=== PATIENT | female | born 1965 | race Caucasian/White ===

== ENCOUNTER 2020-08-25 09:35 | Emergency (ER) | payer BC ==
[2020-08-25] MEDS ORDERED: Ketorolac 60 MG/2 ML SDV IM ONE (10:04)
--- NOTE | 2020-08-25 10:09 | EDM.PDOC ---
ED HPI GENERAL MEDICAL PROBLEM - General Chief Complaint: Flank Pain Stated Complaint: STOMACH PAIN Time Seen by Provider: 08/25/20 09:50 Source of Information: Reports: Patient History Limitations: Reports: No Limitations - History of Present Illness INITIAL COMMENTS - FREE TEXT/NARRATIVE: patient presented to the ER with a c/o left flank pain for 1 day. No fever but chills on/off. Reports that her pain is suprapubic and radiating to the left flank. Also reports emesis this morning. h/o kidney stones in the past. no change in urine today. Onset: Sudden Duration: Day(s): (1) Location: Reports: Abdomen Quality: Reports: Sharp Severity: Moderate - Related Data Allergies Allergy/AdvReac Type Severity Reaction Status Date / Time No Known Allergies Allergy Verified 07/10/15 10:15 Home Meds: Home Meds Biotin 7,000 mcg PO DAILY 07/09/15 [History] Calcium Carbonate/Vitamin D3 [Calcium 1,000 + D3 Caplet] 1 tab PO DAILY 07/09/15 [History] Multivitamin [Multivitamins] 1 each PO DAILY 07/09/15 [History] Past Medical History HEENT History: Reports: Impaired Vision Gastrointestinal History: Reports: Diverticulosis, Other (See Below) Other Gastrointestinal History: Diverticulitis Genitourinary History: Reports: Renal Calculus, UTI, Recurrent [employer]CH[employer]ICIAN History: Reports: Musculoskeletal History: Reports: Osteoarthritis Oncologic (Cancer) History: Reports: Other (See Below) Other Oncologic History: skin cancer Dermatologic History: Reports: Other (See Below) Other Dermatologic History: skin cancer - Infectious Disease History Infectious Disease History: Reports: Chicken Pox, Measles - Past Surgical History Female Surgical History: Reports: D&C Social & Family History - Family History Family Medical History: Unobtainable GI: Reports: Other (See Below) Other GI Family History: colon cancer - uncle ED ROS GENERAL - Review of Systems Review Of Systems: See Below Constitutional: Reports: No Symptoms HEENT: Reports: No Symptoms Respiratory: Reports: No Symptoms Cardiovascular: Reports: No Symptoms GI/Abdominal: Reports: Abdominal Pain : Reports: Flank Pain Musculoskeletal: Reports: No Symptoms Skin: Reports: No Symptoms Neurological: Reports: No Symptoms ED EXAM, RENAL/ - Physical Exam Exam: See Below Exam Limited By: No Limitations General Appearance: Alert, WD/WN, No Apparent Distress Eye Exam: Bilateral Eye: EOMI, PERRL Respiratory/Chest: No Respiratory Distress Cardiovascular: Normal Peripheral Pulses GI/Abdominal: Normal Bowel Sounds Back Exam: CVA Tenderness (L) Extremities: Normal Inspection Neurological: Alert, Oriented, No Motor/Sensory Deficits Course - Orders/Labs/Meds Orders: Active Orders 24 hr Category Date Time Status Abdomen Pelvis wo Cont [CT] Stat Exams 08/25/20 10:27 Ordered Labs: Laboratory Tests 08/25/20 08/25/20 08/25/20 Range/Units 10:04 10:10 10:10 WBC 9.5 (4.0-11.0) K/uL RBC 4.38 (3.80-5.80) M/uL Hgb 12.5 (11.5-16.5) g/dL Hct 36.3 L (37.0-47.0) % MCV 83 (76-96) fL MCH 28.5 (27.0-32.0) pg MCHC 34.4 (31.0-35.0) g/dL RDW 13.5 (11.0-16.0) % Plt Count 250 (150-500) K/uL MPV 9.2 (6.0-10.0) fL Sodium 143 (136-145) mmol/L Potassium 4.5 (3.5-5.1) mmol/L Chloride 104 (98-107) mmol/L Carbon Dioxide 30.1 (21.0-32.0) mmol/L Anion Gap 13.4 (5.0-15.0) mmol/L BUN 14 D (8-26) mg/dL Creatinine 0.98 D (0.55-1.02) mg/dL Est Cr Clr Drug Dosing TNP Estimated GFR (MDRD) 59 L (>60) MLS/MIN BUN/Creatinine Ratio 14.3 (6-25) Glucose 100 (74-100) mg/dL Calcium 9.2 (8.5-10.1) mg/dL Urine Color Yellow Urine Appearance Cloudy (CLEAR) Urine pH 7.5 (5.0-8.0) Ur Specific [place] 1.020 (1.003-1.030) Urine Protein Negative (NEGATIVE) mg/dL Urine Glucose (UA) Negative (NEGATIVE) mg/dL Urine Ketones Negative (NEGATIVE) mg/dL Urine Occult Blood Trace-intact H (NEGATIVE) Urine Nitrite Negative (NEGATIVE) Urine Bilirubin Negative (NEGATIVE) Urine Urobilinogen 0.2 (0.2-1.0) E.U./dL Ur Leukocyte Esterase Negative (NEGATIVE) Urine RBC 5-10 H /HPF Urine WBC Not seen /HPF Amorphous Sediment Moderate /HPF Meds: Medications Discontinued Medications Generic Name Dose Route Start Last Admin Trade Name Jamaalq PRN Reason Stop Dose Admin Ketorolac Tromethamine 60 mg 08/25/20 10:04 Ketorolac 60 Mg/2 Ml Sdv IM 08/25/20 10:05 ONETIME ONE Ketorolac Tromethamine Confirm 08/25/20 10:13 Ketorolac 60 Mg/2 Ml Sdv Administered 08/25/20 10:14 Dose 60 mg .ROUTE .STK-MED ONE - Re-Assessments/Exams Free Text/Narrative Re-Assessment/Exam: vitals WNL labs were ordered - no leukocytosis, but UA ++ RBC CT abd/pelv showed - 1- left ureteric calculi [id number] with mild hydronephrosis 2- diverticulosis 3- possible pyelonephritis - given fatty stranding around the left kidney pain was controlled with IM toradol - she feels much better and is sleeping Departure - Departure Time of Disposition: 11:20 Disposition: Home, Self-Care 01 Condition: Good Clinical Impression: UTI, Urinary tract infectious disease, Ureteric colic - Discharge Information *PRESCRIPTION DRUG MONITORING PROGRAM REVIEWED*: Not Applicable *COPY OF PRESCRIPTION DRUG MONITORING REPORT IN PATIENT ELEAZAR: Not Applicable Instructions: Urinary Tract Infection, Adult, Renal Colic, [id number] Referrals: PCP,None [Primary Care Provider] - Forms: ED Department Discharge - Problem List & Annotations (1) UTI, Urinary tract infectious disease SNOMED Code(s): 52793974 Code(s): N39.0 - URINARY TRACT INFECTION, SITE NOT SPECIFIED Status: Acute Priority: Low Current Visit: Yes (2) Ureteric colic SNOMED Code(s): 98052751 Code(s): N23 - UNSPECIFIED RENAL COLIC Status: Acute Priority: Low Current Visit: Yes - Problem List Review Problem List Initiated/Reviewed/Updated: Yes - My Orders Last 24 Hours: My Active Orders 08/25/20 10:27 Abdomen Pelvis wo Cont [CT] Stat - Assessment/Plan Last 24 Hours: My Active Orders 08/25/20 10:27 Abdomen Pelvis wo Cont [CT] Stat Plan: - increase fluids intake - take new medications as prescribed - follow up with your PCP in 3-7 days as needed - return to the ER if symptoms got worse or any concerns - please refer to the educational materials
[2020-08-25] MEDS ORDERED: Ketorolac 60 MG/2 ML SDV ONE (10:13)
--- NOTE | 2020-08-25 11:20 | CT ---
DATE OF SERVICE: 08/25/20 CLINICAL DATA: ? LEFT URETERIC STONE Unenhanced abdomen and pelvic CT: The multi slice acquisition through the abdomen and pelvis without IV or oral contrast was performed. Comparison is made to a prior exam dated 28 June 2016. There are mild atelectatic changes in the dependent portion of both lower lungs. The lung bases are otherwise clear. The heart size is normal. There is diffuse gastric wall thickening. This is most likely related to nondistention. Gastritis should be considered. The unenhanced liver appears normal. No focal hepatic lesions. The gallbladder appears normal. No calcified gallstones. The spleen appears normal. The pancreas appears normal. The right and left adrenals appear normal. There are small nonobstructing renal calculi bilaterally. There is a 3 x 3 x 6 mm left ureteral calculi located in the left ureter at the L4-L5 interspace level. There is hydronephrosis and hydroureter proximal to it consistent with obstruction. There is also perinephric fat stranding on the left. This is probably related to obstruction. Pyelonephritis should be considered. No hydronephrosis or hydroureter on the right. The bladder is partially fluid filled. It appears normal. The the patient is status post hysterectomy. The appendix is not dilated. No evidence of appendicitis. There is diverticulosis of the descending and sigmoid colon. No evidence of diverticulitis. No free air. No free fluid. No dilated loops of bowel. No adenopathy. No aortic aneurysm. There is a fat containing umbilical hernia. There is degenerative disc disease throughout the lower thoracic and lumbar spine. Impression: Left ureteral calculi with proximal hydronephrosis and hydroureter. See above. Multiple other findings as discussed above. MTDD
[2020-08-25 14:02] VITALS: BP 157/86; PULSE 62
== END 2020-08-25 11:33 | disposition home or self-care (01) ==
LOC: LB.ED 09:35
DX: N13.2 Hydronephrosis with renal and ureteral calculous obstruction (principal); N39.0 Urinary tract infection, site not specified
CPT/HCPCS: 36415; 74176; 80048; 81001; 85027; 96372; 99284; J1885

== ENCOUNTER 2021-09-28 00:07 | Emergency (ER) | payer BC ==
[2021-09-28] MEDS ORDERED: Sodium Chloride 0.9% 500 ML IV ONE (00:42)
[2021-09-28] MEDS: Ondansetron 4 MG/2 ML SDV IVPUSH ONE ×2 (01:10→02:32)
[2021-09-28] MEDS ORDERED: Ketorolac 60 MG/2 ML SDV IVPUSH ONE (01:13)
[2021-09-28] MEDS: Ketorolac 30 MG/ML SDV ONE (01:18)
[2021-09-28 01:20] VITALS: BP 186/83; PULSE 57
[2021-09-28 01:20] LABS: ESTIMATED GFR 63 mL/min (>60)
[2021-09-28] MEDS ORDERED: Ondansetron 4 MG/2 ML SDV ONE (01:21)
[2021-09-29] MEDS: Ketorolac 30 MG/ML SDV ONE (07:54)
== END 2021-09-28 02:52 | disposition home or self-care (01) ==
LOC: LB.ED 00:07
DX: R11.2 Nausea with vomiting, unspecified (principal); R10.9 Unspecified abdominal pain
CPT/HCPCS: 36415; 80053; 81001; 85025; 96361; 96374; 96375; 99283; 99284; J1885; J2405; J7040

== ENCOUNTER 2021-09-28 09:23 | Emergency (ER) | payer BC ==
[2021-09-28] MEDS ORDERED: Sodium Chloride 0.9% 500 ML IV ONE ×2 (10:08→11:05)
[2021-09-28] MEDS ORDERED: Ketorolac 60 MG/2 ML SDV IVPUSH ONE (10:53)
[2021-09-28] MEDS: Ketorolac 30 MG/ML SDV ONE ×2 (11:00→11:08)
[2021-09-28] MEDS ORDERED: Ondansetron 4 MG/2 ML SDV IVPUSH ONE (11:04)
[2021-09-28] MEDS ORDERED: Ondansetron 4 MG/2 ML SDV ONE (11:16)
[2021-09-28] MEDS ORDERED: Morphine 2 MG/ML SYRINGE IVPUSH ONE ×2 (11:41→11:53)
[2021-09-28] MEDS ORDERED: Morphine 2 MG/ML SYRINGE ONE (11:55)
[2021-09-28 12:07] VITALS: BP 139/80; PULSE 58
== END 2021-09-28 12:15 | disposition home or self-care (01) ==
LOC: LB.ED 09:23
DX: N20.2 Calculus of kidney with calculus of ureter (principal)
CPT/HCPCS: 74176; 96361; 96374; 96375; 99284; J1885; J2270; J2405; J7040